=== PATIENT | female | born 1990 | race Caucasian/White ===

== ENCOUNTER 2022-04-04 08:47 | Outpatient (CLI) | payer BC, SELFPAY ==
--- NOTE | ~2022-04-04 | US_ITS ---
US breast BI complete 04/04/2022 10:39 Indication: Patient states changes in her nipples bilaterally. Procedure: High-resolution complete bilateral breast ultrasound including all 4 quadrants in the suba reolar locations. Comparison: No prior studies for comparison. Findings: Right breast: At 2:00, 3 cm from the nipple there is a 3 mm cyst. At 11:00, 10 cm from the nipple, th ere is an irregular complex hypoechoic mass measuring 5 x 4 x 3 mm with marginal vascularity and no s ignificant posterior features. Left breast: At 4:00, 3 cm from the nipple, there is an oval hypoechoic mass with parallel orientatio n and posterior shadowing measuring 5 x 5 x 3 mm. Impression: 1: Abnormal bilateral breast masses at 11:00, 10 cm from the nipple in the right breast and 4:00, 3 c m from the nipple in the left breast. Recommendation: Recommend diagnostic bilateral mammogram for correlation. BI-RADS CATEGORY 0 - INCOMPLETE STUDY, NEED ADDITIONAL IMAGING EVALUATION. Reviewed, dictated and finalized at location A. ITIONER TUMBLER OPERATOR Impression: 1: Abnormal bilateral breast masses at 11:00, 10 cm from the nipple in the righ t breast and 4:00, 3 cm from the nipple in the left breast. Recommendation: Recommend diagnostic bilateral mammogram for correlation. BI-RADS CATEGORY 0 - INCOMPLETE STUDY, NEED ADDITIONAL IMAGING EVALUATION.
--- NOTE | ~2022-04-04 | MM_ITS ---
EXAMINATION: MM diagnostic [place] BI w mike HISTORY: Follow-up bilateral breast masses TECHNIQUE: Additional 3-D tomosynthesis images of the breasts were performed and synthetic 2-D images were generated. CAD analysis was submitted and interpreted. COMPARISON: Ultrasound dated 04/04/2022 BREAST PARENCHYMAL COMPOSITION: The breasts are heterogeneously dense, which may obscure small masses FINDINGS: In the right breast there is a mass in the upper outer quadrant of the right breast corresp onding to the sonographic abnormality seen on prior examination. There are no suspicious masses, calc ifications or architectural distortion in the left breast to suggest malignancy. IMPRESSION: 1. Abnormal bilateral breast masses identified by ultrasound corresponding mass on mammography in the right breast. 2. Bilateral ultrasound-guided breast biopsies recommended. BI-RADS category 4, suspicious findings. Reviewed, dictated and finalized at location A. T SHOP STENOGRAPHER
== END 2022-04-04 08:48 | disposition home or self-care (01) ==
PROVIDERS: PCP Nurse Practitioner; Visit Provider Nurse Practitioner
DX: N64.59 Other signs and symptoms in breast (principal); R92.8 Other abnormal and inconclusive findings on diagnostic imaging of breast
CPT/HCPCS: 76641; 77062; 77066; G0279

== ENCOUNTER 2022-04-17 09:02 | Outpatient (CLI) | payer BC, SELFPAY ==
--- NOTE | ~2022-04-17 | US_ITS ---
US breast BI limited DATE: 04/17/2022 10:11 INDICATION: Bilateral breast lesions recommended for biopsy TECHNIQUE: Real-time and color flow imaging targeted at right breast 11:00 10 cm from nipple left dorinda ast 4:00 3 cm from nipple COMPARISON: 04/04/2022 bilateral complete breast ultrasound 04/04/2022 lateral diagnostic mammogram FINDINGS: Right breast: There is a benign-appearing approximately 3.8 x 5.2 mm probable lymph node at 11:00 10 cm from nipple. There is a fatty hilus with expected vasculature. The cortex appears normal. Left breast: The previously reported 5 x 5 x 3 mm hypoechoic mass is no longer identified. IMPRESSION: BI-RADS Category 2: Benign Recommendation: Routine mammographic screening beginning at age 40 Reviewed, dictated and finalized at [facility]. Reviewed, dictated and finalized at location A. ROBE ATTENDANT
== END 2022-04-17 09:03 | disposition home or self-care (01) ==
PROVIDERS: PCP Nurse Practitioner; Visit Provider Surgery
DX: R92.8 Other abnormal and inconclusive findings on diagnostic imaging of breast (principal)
CPT/HCPCS: 76642

== ENCOUNTER 2023-04-03 08:44 | Outpatient (CLI) | payer BC, SELFPAY ==
--- NOTE | ~2023-04-03 | MMUS_ITS ---
EXAMINATION: MM diagnostic [place] LT w mike, US breast LT limited HISTORY: Palpable lump in the far upper outer quadrant of the left breast TECHNIQUE: Craniocaudal, mediolateral, and mediolateral oblique 3-D tomosynthesis images of the left breast were performed and synthetic 2-D images were generated. CAD analysis was submitted and interpr eted. High resolution limited left breast ultrasound was performed. COMPARISON: 04/04/2022 BREAST PARENCHYMAL COMPOSITION: The breasts are heterogeneously dense, which may obscure small masses . FINDINGS: MAMMOGRAPHIC FINDINGS: No suspicious mass, calcification, or architectural distortion are identified to suggest malignancy. There has been no suspicious interval change. No mammographic correlate is identified for the reporte d palpable abnormality of concern in the left breast. ULTRASOUND: There is no evidence of focal abnormal solid or cystic mass in the vicinity of the reported palpable abnormality of concern in the left breast. IMPRESSION: 1. No specific mammographic or sonographic correlate is identified for the reported palpable abnormal ity of concern in the left breast. Further evaluation at this time should be based on clinical assess ment. Continued follow-up physical examination is recommended. 2. Recommend routine screening mammography beginning at age 40. BI-RADS Category 1: Negative Reviewed, dictated and finalized at location A. OGICAL TECHNICAL OFFICER IMPRESSION: 1. No specific mammographic or sonographic correlate is identified for the repo rted palpable abnormality of concern in the left breast. Further evaluation at this time should be based on clinical assessment. Continued follow-up physical examination is recommended. 2. Recommend routine screening mammography beginning at age 40. BI-RADS Category 1: Negative
== END 2023-04-03 08:45 | disposition home or self-care (01) ==
PROVIDERS: PCP Nurse Practitioner; Visit Provider Nurse Practitioner
DX: N63.21 Unspecified lump in the left breast, upper outer quadrant (principal)
CPT/HCPCS: 76642; 77061; 77065; G0279